=== PATIENT | female | born 1980 | race Caucasian/White ===

== ENCOUNTER 2017-07-27 02:14 | Emergency (ER) | payer OTHER ==
[~2017-07-27] VITALS: Ht 170.2 cm; Wt 63.6 kg
[~2017-07-27 02:14] MED LIST: METH10SO PO
[2017-07-27] MEDS ORDERED: ACETAMINOPHEN 325 MG TABLET PO ONE (02:30)
[2017-07-27] MEDS ORDERED: ONDANSETRON HCL 4 MG TABLET PO ONE (03:15)
[2017-07-27] MEDS ORDERED: IBUPROFEN 600 MG TABLET PO ONE (03:15)
[2017-07-27] MEDS ORDERED: SULFAMETHOX/TRIMETH DS 800-160 MG/TABLET PO ONE (03:15)
[2017-07-27] MEDS ORDERED: CEPHALEXIN MONOHYDRATE 500 MG CAPSULE PO ONE (03:15)
[2017-07-27 03:20] VITALS: BP 118/67
== END 2017-07-27 03:52 | disposition home or self-care (01) ==
LOC: EMS 02:16
DX: J02.9 Acute pharyngitis, unspecified (principal); J06.9 Acute upper respiratory infection, unspecified; F17.210 Nicotine dependence, cigarettes, uncomplicated; Z88.0 Allergy status to penicillin; Z88.5 Allergy status to narcotic agent; Z88.8 Allergy status to other drugs, medicaments and biological substances
CPT/HCPCS: 99284; 99406; Q0162